=== PATIENT | male | born 1970 | race Caucasian/White ===

== ENCOUNTER 2017-03-06 20:55 | Emergency (ER) | payer SELFPAY ==
[~2017-03-06] VITALS: Ht 177.8 cm; Wt 83.9 kg
[2017-03-06] MEDS ORDERED: cefTRIAXone 1GM/50ML D5W 50 ML IV ONE (21:45)
[2017-03-06] MEDS ORDERED: ONDANSETRON HCL 4 MG/2 ML VIAL IV ONE (21:45)
[2017-03-06] MEDS ORDERED: HYDROmorphone HCL 2 MG/ML VL IV ONE (21:45)
[2017-03-06 22:37] LABS: Basophils # (auto) 0 uL; Basophils % (auto) 0.2 % (0.0-2.0); Eosinophils # (auto) 0.2 uL; Eosinophils % (auto) 1.9 % (0.0-7.0); Hematocrit 38.9 % (41.0-53.0); Hemoglobin 13.1 g/dL (13.5-17.5); Lymphocytes # (auto) 1.8 uL; Lymphocytes % (auto) 14.4 % (10.0-50.0); Mean Corpuscular Hemoglobin 30.8 pg (28.0-32.0); Mean Corpuscular Hgb Conc. 33.7 g/dL (32.0-36.0); Mean Corpuscular Volume 91.5 fL (80.0-100.0); Mean Platelet Volume 7.5 fL (6.9-10.8); Monocytes # (auto) 0.9 uL; Monocytes % (auto) 7.5 % (0.0-12.0); Neutrophils # (auto) 9.5 uL; Platelet Count (auto) 388 10^3/uL (140-450); Red Cell Distribution Width 14.7 % (11.8-14.3); White Blood Cell 12.5 10^3/uL (4.4-10.8)
[2017-03-06 22:43] LABS: Bilirubin, Total 0.2 mg/dL (0.2-1.0); Calcium 7.8 mg/dL (8.5-10.1); Potassium 3.8 mmol/L (3.5-5.1); Total Protein 8.6 g/dL (6.4-8.2)
[2017-03-06] MEDS ORDERED: TETANUS-DIPTH-ACEL PERTUSSIS 0.5ML SYRG IM ONE (23:00)
[2017-03-06] MEDS ORDERED: SODIUM CHLORIDE 0.9% 500 ML IV ONE (23:15)
[2017-03-07] MEDS ORDERED: HYDROmorphone HCL 2 MG/ML VL IV ONE (00:45)
[2017-03-07] MEDS ORDERED: NEOMYCIN-BACITRACIN-POLYM UNITDOSE PKG TOP OINT TOP ONE (00:45)
[2017-03-07 01:22] VITALS: BP 159/107
== END 2017-03-07 01:43 | disposition home or self-care (01) ==
LOC: ER 20:59
DX: S83.92XA Sprain of unspecified site of left knee, initial encounter (principal); S63.642A Sprain of metacarpophalangeal joint of left thumb, initial encounter; S60.512A Abrasion of left hand, initial encounter; I10 Essential (primary) hypertension; V28.0XXA Motorcycle driver injured in noncollision transport accident in nontraffic accident, initial encounter; Y93.89 Activity, other specified; Y99.8 Other external cause status; Y92.89 Other specified places as the place of occurrence of the external cause
CPT/HCPCS: 36415; 70450; 72125; 73120; 73560; 80053; 82962; 85025; 90471; 90715; 96361; 96365; 96375; 96376; 99285; J0696; J1170; J2405; J7040

== ENCOUNTER 2017-03-09 23:04 | Emergency (ER) | payer SELFPAY ==
[2017-03-10 00:01] LABS: Basophils # (auto) 0.1 uL; Basophils % (auto) 0.6 % (0.0-2.0); Eosinophils # (auto) 0.3 uL; Eosinophils % (auto) 1.4 % (0.0-7.0); Hematocrit 40.8 % (41.0-53.0); Hemoglobin 13.9 g/dL (13.5-17.5); Lymphocytes # (auto) 1.2 uL; Lymphocytes % (auto) 5.6 % (10.0-50.0); Mean Corpuscular Hemoglobin 31.3 pg (28.0-32.0); Mean Corpuscular Hgb Conc. 34.1 g/dL (32.0-36.0); Mean Platelet Volume 7.3 fL (6.9-10.8); Monocytes # (auto) 1.3 uL; Monocytes % (auto) 6.3 % (0.0-12.0); Neutrophils # (auto) 17.6 uL; Neutrophils % (auto) 86.1 % (37.0-80.0); Platelet Count (auto) 392 10^3/uL (140-450); Red Cell Distribution Width 14.3 % (11.8-14.3); White Blood Cell 20.5 10^3/uL (4.4-10.8)
[2017-03-10 00:30] LABS: Albumin 3.1 g/dL (3.4-5.0); BUN/Creatinine Ratio 15.4; Calcium 9.2 mg/dL (8.5-10.1); Potassium 4.1 mmol/L (3.5-5.1)
[2017-03-10 00:33] LABS: Bilirubin, Total 0.3 mg/dL (0.2-1.0); Total Protein 7.5 g/dL (6.4-8.2)
== END 2017-03-10 02:00 | disposition left against medical advice (07) ==
LOC: ER 23:10
DX: M79.604 Pain in right leg (principal); Z53.21 Procedure and treatment not carried out due to patient leaving prior to being seen by health care provider
CPT/HCPCS: 36415; 80053; 85025; 85379

== ENCOUNTER 2024-07-28 11:19 | Inpatient (IN) | payer MEDICAID ==
[~2024-07-28] VITALS: Ht 167.6 cm; Wt 89.0 kg
--- NOTE | 2024-07-28 12:13 | ED.PDOC ---
History of Present Illness HPI Comments 54-year-old male with PMHx HTN, CKD, GA, BPH presents with a chief complaint of headache and left-sided weakness. Patient states that he went to bed 0500 this morning and was his last known well time. Patient states that he woke up at 0900 and had a pressure-like headache that he rates a 10/10. Patient is now presenting with slurred speech and reports that is not how he normally talks. Patient also has facial drooping and weakness on his left-side. Patient is hypertensive in triage at 161/105. Patient mentions that he took 2 viagra pills last night and also did methamphetamine. Chief Complaint: Headache Time Seen by MD: 11:58 Reviewed Notes: Medications, Allergies Allergies: Coded Allergies: NO KNOWN ALLERGIES (Unverified , 07/25/24) Information Source: Patient Mode of Arrival: Ambulatory Severity: Moderate Timing: Hours Duration: Since onset Prehospital treatment: None Past Medical History PAST MEDICAL HISTORY: CKF, HTN, GA Past Medical History (Other): BPH Surgical History: Denies all surgeries Family History Family History: Reviewed,noncontributory to illness Social History Smoker: Non-Smoker Alcohol: Denies ETOH Use Drugs: Methamphetamine Lives In: Home Constitutional: denies: chills, diaphoresis, fatigue, fever, malaise, sweats, w eakness, others EENTM: denies: blurred vision, double vision, ear bleeding, ear discharge, ear drainage, ear pain, ear ringing, eye pain, eye redness, hearing loss, mouth pain, mouth swelling, nasal discharge, nose bleeding, nose congestion, nose pain, photophobia, tearing, throat pain, throat swelling, voice changes, others Respiratory: denies: cough, hemoptysis, orthopnea, SOB at rest, shortness of breath, SOB with excertion, stridor, wheezing, others Cardiovascular: denies: chest pain, dizzy spells, diaphoresis, Dyspnea on exertion, edema, irregular heart beat, left arm pain, lightheadedness, palpitations, PND, syncope, others Gastrointestinal: denies: abdomen distended, abdominal pain, blood streaked bowels, constipated, diarrhea, dysphagia, difficulty swallowing, hematemesis, melena, nausea, poor appetite, poor fluid intake, rectal bleeding, rectal pain, vomiting, others Genitourinary: denies: burning, dysuria, flank pain, frequency, hematuria, incontinence, penile discharge, penile sore, pain, testicle pain, testicle swe lling, urgency, others Neurological: reports: headache, left sided weakness; denies: dizziness, fainting, left sided numbness, numbness, paresthesia, pre-existing deficit, right sided numbness, right sided weakness, seizure, speech problems, tingling, tremors, weakness, others Musculoskeletal: denies: back pain, gout, joint pain, joint swelling, muscle pain, muscle stiffness, neck pain, others Integumetry: denies: bruises, change in color, change in hair/nails, dryness, laceration, lesions, lumps, rash, wounds, others Allergic/Immunocompromised: denies: Difficulty Healing, Frequent Infections, Hives, Itching, others Hematologic/Lymphatic: denies: anemia, blood clots, easy bleeding, easy bruising, swollen glands, others Endocrine: denies: excessive hunger, excessive sweating, excessive thirst, excessive urination, flushing, intolerance to cold, intolerance to heat, unexplained weight gain, unexplained weight loss, others Psychiatric: denies: anxiety, bipolar disorder, depression, hopeless, panic disorder, schizophrenia, sleepless, suicidal, others All Other Systems: Reviewed and Negative Physical Exam General Appearance: No Apparent Distress, Normal HEENT: Normal ENT Inspection, Pharynx Normal, TMs Normal Neck: Full Range of Motion, Non-Tender, Normal, Normal Inspection Respiratory: Chest Non-Tender, Lungs Clear, No Accessory Muscle Use, No Respiratory Distress, Normal Breath Sounds Cardiovascular: No Edema, No JVD, No Murmur, No Gallop, Normal Peripheral Pulses, Regular Rate/Rhythm, Other (HYPERTENSIVE) Breast Exam: Deferred Gastrointestinal: No Organomegaly, Non Tender, No Pulsatile Mass, Normal Bowel Sounds, Soft Genitalia: Deferred Pelvic: Deferred Rectal: Deferred Extremities: No calf tenderness, Normal capillary refill, Normal inspection, Normal range of motion, Non-tender, No pedal edema Musculoskeletal : Apperance: Normal Neurologic: Alert, Facial Droop (LEFT SIDED), Normal Affect, Speech Problem (SLURRED SPEECH), Other (LEFT-SIDED FACIAL WEAKNESS) Cerebellar Function: Normal Reflexes: Normal Skin: Dry, Normal Color, Warm Lymphatic: No Adenopathy Was a procedure done? Was a procedure done?: No EKG EKG : Pulse Rate (adult): 79 [place]: Normal Cardiac Rhythm: NSR Block: None Hypertrophy: None ST: Old, Inf, Ant Differential Dx Considerations may include: CVA, ACS, polysubstance abuse, viral syndrome, hypertensive emergency, atypical migraine X-Ray, Labs, Meds, VS Vital Signs Date Time Temp Pulse Resp B/P (MAP) Pulse Ox O2 Delivery O2 Flow Rate FiO2 07/28/24 12:36 93 20 100 Room Air* 0 21 07/28/24 12:36 97.5 93 20 145/100 (115) 100 97.5 07/28/24 12:13 79 07/28/24 12:06 98.3 91 17 147/106 (120) 99 07/28/24 12:03 79 Lab Test 07/28/24 12:54 07/28/24 12:11 07/28/24 11:57 Range/Units White Blood Count 6.8 4.4-10.8 10^3/uL Red Blood Count 4.22 L 4.5-5.90 10^6/uL Hemoglobin 12.8 L 13.5-17.5 g/dL Hematocrit 38.0 L 41.0-53.0 % Mean Corpuscular Volume 90.2 80.0-100.0 fL Mean Corpuscular Hemoglobin 30.5 28.0-32.0 pg Mean Corpuscular Hemoglobin Concent 33.8 32.0-36.0 g/dL Red Cell Distribution Width 14.0 11.8-14.3 % Platelet Count 330 140-450 10^3/uL Mean Platelet Volume 7.7 6.9-10.8 fL Neutrophils (%) (Auto) 58.7 37.0-80.0 % Lymphocytes (%) (Auto) 21.7 10.0-50.0 % Monocytes (%) (Auto) 12.6 H 0.0-12.0 % Eosinophils (%) (Auto) 6.2 0.0-7.0 % Basophils (%) (Auto) 0.8 0.0-2.0 % Neutrophils # (Auto) 4.0 1.6-8.6 10 ^3/uL Lymphocytes # (Auto) 1.5 0.4-5.4 10 ^3/uL Monocytes # (Auto) 0.9 0-1.3 10 ^3/uL Eosinophils # (Auto) 0.4 0-0.8 10 ^3/uL Basophils # (Auto) 0.1 0-0.2 10 ^3/uL Nucleated Red Blood Cells 0.1 % Sodium Level 140 136-145 mmol/L Potassium Level 4.3 3.5-5.1 mmol/L Chloride Level 108 H 98-107 mmol/L Carbon Dioxide Level 24 20-31 mmol/L Anion Gap 8 5-15 Blood Urea Nitrogen 20 9-23 mg/dL Creatinine 1.39 H 0.700-1.30 mg/dL Glomerular Filtration Rate Calc 61 >90 mL/min BUN/Creatinine Ratio 14.4 10.0-20.0 Serum Glucose 102 74-106 mg/dL Lactic Acid Level 0.8 0.4-2.0 mmol/L Calcium Level 9.9 8.7-10.4 mg/dL Troponin I High Sensitivity 67 *H </=54 ng/L B-Type Natriuretic Peptide 62.81 0-100 pg/mL Lipase 58 H 12-53 U/L Urine Color Yellow Yellow Urine Clarity Clear Clear Urine pH 5.5 5.0-9.0 Urine Specific [place] 1.027 1.001-1.035 Urine Protein Trace H Negative Urine Ketones Negative Negative Urine Blood Negative Negative /uL Urine Nitrite Negative Negative Urine Bilirubin Negative Negative Urine Urobilinogen Normal Negative mg/dL Urine Leukocyte Esterase Negative Negative /uL Urine RBC <1 0 - 3 /hpf Urine Microscopic WBC 1 0-3 /HPF Urine Squamous Epithelial Cells None seen <5 /hpf Urine Bacteria None seen None Seen /hpf Urine Glucose Normal Normal mg/dL Urine Opiates Screen Neg NEGATIVE Urine Fentanyl Screen Neg NEGATIVE Urine Barbiturates Screen Neg NEGATIVE Urine Phencyclidine Screen Neg NEGATIVE Urine Amphetamines Screen Pos NEGATIVE Urine Benzodiazepines Screen Neg NEGATIVE Urine Cocaine Screen Neg NEGATIVE Urine Cannabinoids Screen Pos NEGATIVE POC Glucose 120 H 70-106 mg/dl Time of 1ST Reevaluation: 12:28 Reevaluation 1ST: Unchanged Patient Education/Counseling: Diagnosis, Treatment, Prognosis Family Education/Counseling: No Family Present Departure 1 Departure Time of Disposition: 14:04 (Patient presenting with left-sided facial droop and is out of the range for thrombolytics. Patient does not have signs and symptoms for a large vessel occlusion.Patient presented with hypertension and symptoms concerning for hypertensive emergency. Patient is receiving iv blood pressure medications requiring intensive monitoring. Data: 1. I ordered and reviewed the result of at least 3 labs including a CBC, BMP, and Urinalysis. 2. I independently interpreted the following tests: CT Brain: Which appears benign. EKG which is Normal Sinus RhythmRisk:This patient has a high risk of morbidity due to further diagnostic testing or treatment and may suffer from an acute cardiac disorder. Workup reveals hypertensive emergency and patient should be admitted for further workup. and possible expert consultation. ) Impression: Primary Impression: Hypertensive emergency Additional Impressions: Weakness on left side of face Elevated troponin Polysubstance abuse Disposition: ADMITTED INPATIENT Admit to: Med Surg Condition: Serious Critical Care Note Critical Care Time?: Yes Critical care comment: Hypertensive emergency and left-sided facial weakness Authorized and Performed by: Inna Charles MD Total critical care time: Approximately 46 minutes Due to a high probability of clinically significant, life threatening deterioration, the patient required my highest level of preparedness to intervene emergently and I personally spent this critical care time directly and personally managing the patient. This critical care time included obtaining a history; examining the patient; pulse oximetry; ordering and review of studies; arranging urgent treatment with development of a management plan; evaluation of patient's response to treatment; frequent reassessment; and, discussions with other providers. This critical care time was performed to assess and manage the high probability of imminent, life-threatening deterioration that could result in multi-organ failure. It was exclusive of separately billable procedures and treating other patients and teaching time. Please see my other sections and the rest of the note for further information on patient assessment and treatment. Stability Stability form required: No I personally scribed for INNA CHARLES MD ([email or web address]) on 07/28/24 at 12:13. Electronically submitted by Krishna Vidal ([email or web address]). INNA CHARLES MD Jul 28, 2024 12:13
--- NOTE | 2024-07-28 12:31 | DVH ---
EXAM: XY CHEST PORTABLE HISTORY: left sided facial weakness COMPARISON: None TECHNIQUE: Portable AP view of the chest was performed. FINDINGS: No pneumothorax, consolidative infiltrates, or pulmonary edema. The heart is not enlarged. There is mild lower thoracic levoscoliosis. IMPRESSION: No acute intrathoracic process.
[2024-07-28 12:36] VITALS: PULSE 93; RESP 20; O2SAT 100
--- NOTE | 2024-07-28 12:36 | DVH ---
EXAM: CT HEAD WITHOUT CONTRAST HISTORY: left sided facial weakness COMPARISON: None TECHNIQUE: Axial images of the head were obtained and reformatted in coronal and sagittal planes. All CT scans at this medical facility are performed using dose modulation techniques as appropriate t o a performed exam including the following: Automated exposure control was utilized; adjustment of th e MA and/or KV according to patient size; and use of iterative reconstruction technique. CT Dose: CTDI volume is 54.5 mGy. Dose-length product is 964.75 mGy*cm FINDINGS: There is no evidence of acute intracranial hemorrhage, mass, mass effect midline shift. There is no h ydrocephalus or extra-axial fluid collection. Cagle-white matter differentiation is maintained. The visualized paranasal sinuses and mastoid air cells are clear. The calvarium is intact. IMPRESSION: 1. No acute intracranial process. HS:Y
[2024-07-28 12:47] LABS: Urine Bacteria None Seen /hpf (None Seen)
[2024-07-28 13:08] LABS: Urine Blood Negative /uL (Negative); Urine Clarity Clear (Clear); Urine Color Yellow (Yellow); Urine Protein, UAD TRACE (Negative); Urine Specific Gravity 1.027 (1.001-1.035); Urine Squamous Epithelial Cell None Seen /hpf (<5); Urine Urobilinogen Normal (Negative); Urine WBC 1 /HPF (0-3); Urine pH 5.5 (5.0-9.0)
[2024-07-28 13:13] LABS: Amphetamine Screen, Urine Pos (NEGATIVE); Barbiturate Scree,Urine Neg (NEGATIVE); Benzodiazephine Screen, Urine Neg (NEGATIVE); Cannabinoid Screen, Urine Pos (NEGATIVE); Cocaine Screen, Urine Neg (NEGATIVE); Opiate Scree,Urine Neg (NEGATIVE); Phencyclidine Screen, Urine Neg (NEGATIVE)
[2024-07-28 13:19] LABS: Basophils # (auto) 0.1 10 ^3/uL (0-0.2); Basophils % (auto) 0.8 % (0.0-2.0); Eosinophils # (auto) 0.4 10 ^3/uL (0-0.8); Eosinophils % (auto) 6.2 % (0.0-7.0); Hemoglobin 12.8 g/dL (13.5-17.5); Lymphocytes # (auto) 1.5 10 ^3/uL (0.4-5.4); Lymphocytes % (auto) 21.7 % (10.0-50.0); Mean Corpuscular Hemoglobin 30.5 pg (28.0-32.0); Mean Corpuscular Hgb Conc. 33.8 g/dL (32.0-36.0); Mean Corpuscular Volume 90.2 fL (80.0-100.0); Monocytes # (auto) 0.9 10 ^3/uL (0-1.3); Monocytes % (auto) 12.6 % (0.0-12.0); Neutrophils % (auto) 58.7 % (37.0-80.0); Nucleated Red Blood Cells % 0.1 %; Platelet Count (auto) 330 10^3/uL (140-450); Red Blood Cells 4.22 10^6/uL (4.5-5.90); White Blood Cell 6.8 10^3/uL (4.4-10.8)
[2024-07-28 13:26] LABS: Potassium 4.3 mmol/L (3.5-5.1); Sodium 140 mmol/L (136-145)
[2024-07-28 13:27] LABS: Anion Gap 8 (5-15); Calcium 9.9 mg/dL (8.7-10.4); Carbon Dioxide 24 mmol/L (20-31)
[2024-07-28 13:32] LABS: BUN/Creatinine Ratio 14.4 (10.0-20.0); Blood Urea Nitrogen 20 mg/dL (9-23); Glucose 102 mg/dL (74-106)
[2024-07-28 13:33] LABS: Chloride 108 mmol/L (98-107); Lipase 58 U/L (12-53)
[2024-07-28] MEDS: hydrALAZINE HCL 20 MG/ML VL IV ONE (15:14)
[2024-07-28] MEDS ORDERED: ACETAMINOPHEN 325 MG TAB PO PRN (15:45)
[2024-07-28] MEDS ORDERED: hydrALAZINE HCL 20 MG/ML VL IV PRN (15:45)
[2024-07-28] MEDS ORDERED: DOCUSATE SOD 100 MG CAP PO PRN (15:45)
[2024-07-28] MEDS ORDERED: ONDANSETRON HCL 4 MG/2 ML VIAL IV PRN (15:45)
[2024-07-28] MEDS: TAMSULOSIN HYDROCHLORIDE 0.4 MG CAP PO SCH (16:02)
[2024-07-28] MEDS: amLODIPine BESYLATE 5 MG TAB PO ONE (16:03)
--- NOTE | 2024-07-28 16:03 | DVHHP2 ---
History of Present Illness Reason for Visit: Headache History of Present Illness The patient is a 54-year-old male with past medical history of CKF, hypertension, NE, and BPH presented to [facility] ED with complaint of headache. Patient reports symptoms progressively get worse with left-sided weakness, pressure of his right eyes, getting worse that prompted this visit. Patient was seen and evaluated in the ED, laboratory data shows WBC 6.8, platelets 330, sodium 140, potassium 4.3, BUN 20, creatinine 1.39, GFR 61, glucose 102, BNP 62.81, troponin 67, lipase 58, toxicology positive for amphetamine and marijuana, blood pressure 148/94, heart rate 95, temperature 97.5 F, O2 saturation 98% on room air. Head CT showed no acute intracranial process. Please see medication orders section in the computer. On my assessment, patient denied chest pain, no dizziness, no diaphoresis, no shortness a breath, no nausea, no vomiting, no fever, no chills. Patient was admitted for further evaluation and medical management. Past Medical History CKF, HTN, NE, BPH Past Surgical History Denies all surgeries Family History Reviewed, noncontributory to the management of this case. Past Social History Patient lives at home, denies smoking, alcohol use, uses methamphetamine and marijuana. Review of Systems Constitutional: Yes: Weakness; No: Fever, Chills, Sweats, Malaise, Other Eyes: No: Pain, Vision change, Conjunctivae inflammation, Eyelid inflammation, Other, Redness ENT: No: Ear pain, Ear discharge, Nose pain, Nose discharge, Nose congestion, Mouth pain, Mouth swelling, Throat pain, Throat swelling, Other Respiratory: No: Cough, Dry, Shortness of breath, SOB with excertion, Wheezing, Hemoptysis, Pleuritic Pain, Sputum, Wheezing, Other Cardiovascular: No: Chest Pain, Palpitations, Orthopnea, Paroxysmal Noc. Dyspnea, Edema, Lt Headedness, Other Gastrointestinal: No: Nausea, Vomiting, Abdominal Pain, Diarrhea, Constipation, Melena, Hematochezia, Other Genitourinary: No Dysuria, No Frequency, No Incontinence, No Hematuria, No Retention, No Other Musculoskeletal: No: other, neck pain, shoulder pain, arm pain, back pain, hand pain, leg pain, foot pain Skin: No: Rash, Lesions, Jaundice, Bruising, Other Neurological: Other (Headache, left-sided weakness.); No: Weakness, Numbness, Incoordination, Change in speech, Confusion, Seizures Allergies: Coded Allergies: NO KNOWN ALLERGIES (Unverified , 07/25/24) Medications Current Medications Medications Dose Ordered Sig/Christian Route Start Time Stop Time Status Last Admin Dose Admin Amlodipine Besylate 5 mg DAILY PO 07/29/24 10:00 Hydralazine HCl 10 mg Q6HP PRN IV 07/28/24 15:45 Aspirin 81 mg DAILY PO 07/29/24 10:00 Tamsulosin HCl 0.4 mg QPM PO 07/28/24 18:00 Famotidine 20 mg DAILY IV 07/29/24 10:00 UNV Carvedilol 12.5 mg Q12HR PO 07/28/24 22:00 Sodium Chloride 10 ml Q8HR IV 07/28/24 22:00 Acetaminophen/ Hydrocodone Bitart 1 tab Q4HP PRN PO 07/28/24 15:45 Ondansetron HCl 4 mg Q4HP PRN IV 07/28/24 15:45 Docusate Sodium 100 mg BIDPRN PRN PO 07/28/24 15:45 Acetaminophen 650 mg Q6HP PRN PO 07/28/24 15:45 Exam Vital Signs Vital Signs Date Time Temp Pulse Resp B/P (MAP) Pulse Ox O2 Delivery O2 Flow Rate FiO2 07/28/24 15:14 148/94 07/28/24 14:30 95 18 97 07/28/24 12:36 Room Air* 0 21 07/28/24 12:36 97.5 97.5 General Appearance: Alert, Oriented X3, Cooperative, No acute distress HEENT: Atraumatic, PERRLA, EOMI, Mucous membr. moist/pink Respiratory: Clear to auscultation, Normal air movement Cardiovascular: Regular rate, Normal S1, Normal S2, No murmurs Abdominal: Normal bowel sounds, Soft, No tenderness, No hepatospenomegaly Extremities: No clubbing, No cyanosis, No edema, Normal pulses, No tenderness/swelling Skin: No rashes, No breakdown, No significant lesion Neuro: Normal speech, Normal tone, Sensation intact, Cranial nerves 3-12 NL, Reflexes 2+, Other (Generalized weakness) Psych/Mental Status: Mental status NL, Mood NL Labs/Xrays Labs Test 07/28/24 12:54 3/10/25 12:11 07/28/24 11:57 Range/Units White Blood Count 6.8 4.4-10.8 10^3/uL Red Blood Count 4.22 L 4.5-5.90 10^6/uL Hemoglobin 12.8 L 13.5-17.5 g/dL Hematocrit 38.0 L 41.0-53.0 % Mean Corpuscular Volume 90.2 80.0-100.0 fL Mean Corpuscular Hemoglobin 30.5 28.0-32.0 pg Mean Corpuscular Hemoglobin Concent 33.8 32.0-36.0 g/dL Red Cell Distribution Width 14.0 11.8-14.3 % Platelet Count 330 140-450 10^3/uL Mean Platelet Volume 7.7 6.9-10.8 fL Neutrophils (%) (Auto) 58.7 37.0-80.0 % Lymphocytes (%) (Auto) 21.7 10.0-50.0 % Monocytes (%) (Auto) 12.6 H 0.0-12.0 % Eosinophils (%) (Auto) 6.2 0.0-7.0 % Basophils (%) (Auto) 0.8 0.0-2.0 % Neutrophils # (Auto) 4.0 1.6-8.6 10 ^3/uL Lymphocytes # (Auto) 1.5 0.4-5.4 10 ^3/uL Monocytes # (Auto) 0.9 0-1.3 10 ^3/uL Eosinophils # (Auto) 0.4 0-0.8 10 ^3/uL Basophils # (Auto) 0.1 0-0.2 10 ^3/uL Nucleated Red Blood Cells 0.1 % Sodium Level 140 136-145 mmol/L Potassium Level 4.3 3.5-5.1 mmol/L Chloride Level 108 H 98-107 mmol/L Carbon Dioxide Level 24 20-31 mmol/L Anion Gap 8 5-15 Blood Urea Nitrogen 20 9-23 mg/dL Creatinine 1.39 H 0.700-1.30 mg/dL Glomerular Filtration Rate Calc 61 >90 mL/min BUN/Creatinine Ratio 14.4 10.0-20.0 Serum Glucose 102 74-106 mg/dL Lactic Acid Level 0.8 0.4-2.0 mmol/L Calcium Level 9.9 8.7-10.4 mg/dL Troponin I High Sensitivity 67 *H </=54 ng/L B-Type Natriuretic Peptide 62.81 0-100 pg/mL Lipase 58 H 12-53 U/L Urine Color Yellow Yellow Urine Clarity Clear Clear Urine pH 5.5 5.0-9.0 Urine Specific [place] 1.027 1.001-1.035 Urine Protein Trace H Negative Urine Ketones Negative Negative Urine Blood Negative Negative /uL Urine Nitrite Negative Negative Urine Bilirubin Negative Negative Urine Urobilinogen Normal Negative mg/dL Urine Leukocyte Esterase Negative Negative /uL Urine RBC <1 0 - 3 /hpf Urine Microscopic WBC 1 0-3 /HPF Urine Squamous Epithelial Cells None seen <5 /hpf Urine Bacteria None seen None Seen /hpf Urine Glucose Normal Normal mg/dL Urine Opiates Screen Neg NEGATIVE Urine Fentanyl Screen Neg NEGATIVE Urine Barbiturates Screen Neg NEGATIVE Urine Phencyclidine Screen Neg NEGATIVE Urine Amphetamines Screen Pos NEGATIVE Urine Benzodiazepines Screen Neg NEGATIVE Urine Cocaine Screen Neg NEGATIVE Urine Cannabinoids Screen Pos NEGATIVE POC Glucose 120 H 70-106 mg/dl PATIENT: EV RICHARDSON ACCT: [id number] UNIT: [id number] : 1970 LOC: ER ROOM / BED: / AGE / SEX: 54 / M ADM STATUS: REG ER SERVICE 1206 ORDERING PHYSICIAN: INNA DE SANTIAGO MD PROCEDURE(s): HWOCT - HEAD WITHOUT CONTRAST REASON: left sided facial weakness ORDER NUMBER(s): [id number], ACCESSION NUMBER(s): [id number] EXAM: CT HEAD WITHOUT CONTRAST HISTORY: left sided facial weakness COMPARISON: None TECHNIQUE: Axial images of the head were obtained and reformatted in coronal and sagittal planes. All CT scans at this medical facility are performed using dose modulation techniques as appropriate to a performed exam including the following: Automated exposure control was utilized; adjustment of the MA and/or KV according to patient size; and use of iterative reconstruction technique. CT Dose: CTDI volume is 54.5 mGy. Dose-length product is 964.75 mGy*cm FINDINGS: There is no evidence of acute intracranial hemorrhage, mass, mass effect midline shift. There is no hydrocephalus or extra-axial fluid collection. Cagle-white matter differentiation is maintained. The visualized paranasal sinuses and mastoid air cells are clear. The calvarium is intact. IMPRESSION: 1. No acute intracranial process. ORDERING PHYSICIAN: INNA DE SANTIAGO MD PROCEDURE(s): CXRP - CHEST PORTABLE REASON: left sided facial weakness ORDER NUMBER(s): [id number], ACCESSION NUMBER(s): [id number] EXAM: XY CHEST PORTABLE HISTORY: left sided facial weakness COMPARISON: None TECHNIQUE: Portable AP view of the chest was performed. FINDINGS: No pneumothorax, consolidative infiltrates, or pulmonary edema. The heart is not enlarged. There is mild lower thoracic levoscoliosis. IMPRESSION: No acute intrathoracic process. Assessment/Plan Assessment/Plan Intractable headache Hypertensive emergency Polysubstance abuse Elevated troponin Weakness on left side of face Plan 1. Admit to telemetry unit 2. Breathing treatment 3. Pain control management 4. Management of fluids and electrolytes 5. Consultation for Neurology 6. Diagnostic tests head CT 7. DVT prophylaxis-on SCDs 8. Repeat labs CBC, CMP in a.m. 9. Continue with current medical management 10. Treatment plan discussed with patient and RN. Patient verbalized understanding. Plan discussed with: Patient, Other (RN) My Orders Orders - HUMPHREY WOO DNP Procedure Category Date Status Time Amlodipine Tablet PHA 07/29/24 In Process (Norvasc Tablet) 10:00 Hydralazine Injection PHA 07/28/24 In Process (Apresoline Inject 15:45 Aspirin Tablet PHA 07/29/24 In Process 10:00 Tamsulosin PHA 07/28/24 In Process Hydrochloride (Flomax) 18:00 Famotidine Injection PHA 07/29/24 Logged (Pepcid Injection) 10:00 Carvedilol Tablet PHA 07/28/24 In Process (Coreg Tablet) 22:00 Allergies NANO 07/28/24 In Process 15:43 Code Status CODE 07/28/24 Transmitted 15:43 Sodium Chloride Lock PHA 07/28/24 In Process (Saline Lock Ns) 22:00 Oxygen Per Hour RT 07/28/24 Transmitted 15:43 Hydrocodone-Acet PHA 07/28/24 In Process 5/325mg Tab ([place] 15:45 Ondansetron Hcl PHA 07/28/24 In Process (Zofran) 15:45 Docusate Sodium PHA 07/28/24 In Process Capsule (Colace 15:45 Complete Blood Count LAB 07/29/24 Verified 04:00 Comprehensive LAB 07/29/24 Verified Metabolic Panel 04:00 Cardiac DIET 07/28/24 Transmitted Diet-2gna,Lofat,Lochol Dinner Condition: Serious NANO 07/28/24 In Process 15:43 Acetaminophen Tablet PHA 07/28/24 In Process (Tylenol Tablet) 15:45 Bedrest With Bathroom NANO 07/28/24 In Process Privileg 15:43 Sequential NANO 07/28/24 In Process Compression Device Admit ADMIT 07/28/24 Verified 16:02 Nitroglycerin [facility] 07/28/24 Verified Sublingual (Ntrostat 16:15 Morphine Sulfate [facility] 07/28/24 Verified Injection 16:15 Notify Md Of Changes [facility] 07/28/24 Verified From Base 16:02 [employer] For [facility] 07/28/24 Verified 24 Hours 16:02 Emergency Dysrhythmia [facility] 07/28/24 Verified Protocol 16:02 Rhythm Strips Once [facility] 07/28/24 Verified Every Shift 16:02 Oxygen By Nasal RT 07/28/24 Verified Cannula 16:02 Problem List: (1) Intractable headache (2) Hypertensive emergency (3) Polysubstance abuse (4) Elevated troponin (5) Weakness on left side of face Date of Service: Jul 28, 2024 Billing Provider: HUMPHREY WOO DNP Common Visit Codes: [id number] INP/OBS CARE (HIGH) HUMPHREY WOO DNP Jul 28, 2024 16:03
[2024-07-28] MEDS ORDERED: MORPHINE SULFATE INJ 2 MG/ml SYRG IV PRN (16:15)
[2024-07-28] MEDS ORDERED: NITROGLYCERIN 0.4 MG SL TAB SL PRN (16:15)
[2024-07-28] MEDS: SODIUM CHLOR 0.9% PF (SALINE LOCK) 10ML VIAL/SYR IV SCH (22:05)
[2024-07-28 22:16] VITALS: BP 152/95; PULSE 101; RESP 18; RESP 20; TEMP 98.1; O2SAT 95; O2SAT 99
[2024-07-28] MEDS: CARVEDILOL 12.5 MG TAB PO SCH (22:39)
[2024-07-29] VITALS (9 sets, daily range): BP systolic 124–145; BP diastolic 73–89; PULSE 70–97; RESP 16–19; TEMP 97.3–98.1; O2SAT 98–100
[2024-07-29 07:15] LABS: Basophils # (auto) 0 10 ^3/uL (0-0.2); Basophils % (auto) 0.8 % (0.0-2.0); Eosinophils # (auto) 0.6 10 ^3/uL (0-0.8); Eosinophils % (auto) 9.2 % (0.0-7.0); Hematocrit 38.7 % (41.0-53.0); Hemoglobin 12.9 g/dL (13.5-17.5); Lymphocytes # (auto) 1.3 10 ^3/uL (0.4-5.4); Lymphocytes % (auto) 19.7 % (10.0-50.0); Mean Corpuscular Hemoglobin 30.5 pg (28.0-32.0); Mean Corpuscular Hgb Conc. 33.3 g/dL (32.0-36.0); Mean Corpuscular Volume 91.8 fL (80.0-100.0); Monocytes # (auto) 0.8 10 ^3/uL (0-1.3); Monocytes % (auto) 11.8 % (0.0-12.0); Neutrophils # (auto) 3.8 10 ^3/uL (1.6-8.6); Neutrophils % (auto) 58.5 % (37.0-80.0); Nucleated Red Blood Cells % 0.1 %; Platelet Count (auto) 320 10^3/uL (140-450); Red Blood Cells 4.22 10^6/uL (4.5-5.90); Red Cell Distribution Width 14.3 % (11.8-14.3); White Blood Cell 6.5 10^3/uL (4.4-10.8)
[2024-07-29 07:29] LABS: Alanine Aminotransferase 16 U/L (7-40); Albumin 3.8 g/dL (3.2-4.8); Alkaline Phosphatase 103 U/L (46-116); Anion Gap 7 (5-15); BUN/Creatinine Ratio 12.6 (10.0-20.0); Blood Urea Nitrogen 18 mg/dL (9-23); Calcium 9.4 mg/dL (8.7-10.4); Carbon Dioxide 22 mmol/L (20-31); Glucose 103 mg/dL (74-106); Potassium 4.1 mmol/L (3.5-5.1); Sodium 138 mmol/L (136-145); Total Protein 6.4 g/dL (5.7-8.2)
[2024-07-29 07:30] LABS: Bilirubin, Total 0.3 mg/dL (0.2-1.0)
[2024-07-29 07:31] LABS: Aspartate Aminotransferase 13 U/L (13-40); Chloride 109 mmol/L (98-107)
[2024-07-29] MEDS: FAMOTIDINE (10MG/ML) 2ML VL IV SCH (09:57)
[2024-07-29] MEDS: ASPirin 81 mg TAB PO SCH (09:59)
[2024-07-29] MEDS: amLODIPine BESYLATE 5 MG TAB PO SCH (10:00)
[2024-07-29 10:28] LABS: INR 1.11 (0.9-1.15); Prothrombin Time 11.6 sec (9.3-11.8)
[2024-07-29] MEDS: LOSARTAN POTASSIUM 50 MG TAB PO ONE (17:25)
[2024-07-29] MEDS: HYDROcodone-ACET 5/325MG TAB PO PRN (17:29)
--- NOTE | 2024-07-29 18:08 | DVHDSRES ---
Discharge Summary Date of Admission Resident Creating Document: KISHA ALCOCER RESIDENT Jul 28, 2024 at 16:02 Date of Discharge: Jul 29, 2024 Admitting Diagnosis headache Labs/Diagnostic Data: Laboratory Results Test 07/29/24 15:44 07/29/24 09:38 07/29/24 06:23 07/28/24 12:54 Troponin I High Sensitivity 61 ng/L (</=54) Prothrombin Time 11.6 sec (9.3-11.8) Prothrombin Time INR 1.11 (0.9-1.15) White Blood Count 6.5 10^3/uL (4.4-10.8) Red Blood Count 4.22 10^6/uL (4.5-5.90) Hemoglobin 12.9 g/dL (13.5-17.5) Hematocrit 38.7 % (41.0-53.0) Mean Corpuscular Volume 91.8 fL (80.0-100.0) Mean Corpuscular Hemoglobin 30.5 pg (28.0-32.0) Mean Corpuscular Hemoglobin Concent 33.3 g/dL (32.0-36.0) Red Cell Distribution Width 14.3 % (11.8-14.3) Platelet Count 320 10^3/uL (140-450) Mean Platelet Volume 7.8 fL (6.9-10.8) Neutrophils (%) (Auto) 58.5 % (37.0-80.0) Lymphocytes (%) (Auto) 19.7 % (10.0-50.0) Monocytes (%) (Auto) 11.8 % (0.0-12.0) Eosinophils (%) (Auto) 9.2 % (0.0-7.0) Basophils (%) (Auto) 0.8 % (0.0-2.0) Neutrophils # (Auto) 3.8 10 ^3/uL (1.6-8.6) Lymphocytes # (Auto) 1.3 10 ^3/uL (0.4-5.4) Monocytes # (Auto) 0.8 10 ^3/uL (0-1.3) Eosinophils # (Auto) 0.6 10 ^3/uL (0-0.8) Basophils # (Auto) 0 10 ^3/uL (0-0.2) Nucleated Red Blood Cells 0.1 % Sodium Level 138 mmol/L (136-145) Potassium Level 4.1 mmol/L (3.5-5.1) Chloride Level 109 mmol/L (98-107) Carbon Dioxide Level 22 mmol/L (20-31) Anion Gap 7 (5-15) Blood Urea Nitrogen 18 mg/dL (9-23) Creatinine 1.43 mg/dL (0.700-1.30) Glomerular Filtration Rate Calc 59 mL/min (>90) BUN/Creatinine Ratio 12.6 (10.0-20.0) Serum Glucose 103 mg/dL (74-106) Hemoglobin A1c 5.9 % A1C (<5.7) Calcium Level 9.4 mg/dL (8.7-10.4) Total Bilirubin 0.3 mg/dL (0.2-1.0) Aspartate Amino Transferase (AST) 13 U/L (13-40) Alanine Aminotransferase (ALT) 16 U/L (7-40) Alkaline Phosphatase 103 U/L (46-116) Total Protein 6.4 g/dL (5.7-8.2) Albumin 3.8 g/dL (3.2-4.8) Thyroid Stimulating Hormone (TSH) 1.41 uIU/mL (0.55-4.78) Lactic Acid Level 0.8 mmol/L (0.4-2.0) B-Type Natriuretic Peptide 62.81 pg/mL (0-100) Lipase 58 U/L (12-53) Test 07/28/24 12:11 07/28/24 11:57 Urine Color Yellow (Yellow) Urine Clarity Clear (Clear) Urine pH 5.5 (5.0-9.0) Urine Specific [place] 1.027 (1.001-1.035) Urine Protein Trace (Negative) Urine Ketones Negative (Negative) Urine Blood Negative /uL (Negative) Urine Nitrite Negative (Negative) Urine Bilirubin Negative (Negative) Urine Urobilinogen Normal mg/dL (Negative) Urine Leukocyte Esterase Negative /uL (Negative) Urine RBC <1 /hpf (0 - 3) Urine Microscopic WBC 1 /HPF (0-3) Urine Squamous Epithelial Cells None seen /hpf (<5) Urine Bacteria None seen /hpf (None Seen) Urine Glucose Normal mg/dL (Normal) Urine Opiates Screen Neg (NEGATIVE) Urine Fentanyl Screen Neg (NEGATIVE) Urine Barbiturates Screen Neg (NEGATIVE) Urine Phencyclidine Screen Neg (NEGATIVE) Urine Amphetamines Screen Pos (NEGATIVE) Urine Benzodiazepines Screen Neg (NEGATIVE) Urine Cocaine Screen Neg (NEGATIVE) Urine Cannabinoids Screen Pos (NEGATIVE) POC Glucose 120 mg/dl (70-106) Other Laboratory Tests 07/29/24 06:23 Brief Hx & Hospital Course: HPI: The patient is a 54-year-old male with past medical history of chronic kidney disease, hypertension, myocardial infarction, benign prostatic hyperplasia who presented to the hospital with a chief complaint of headaches for the past 1 day after he uses 2 pills of Viagra and methamphetamines the last night before admission. Patient reports he he was progressively getting worse with left- sided weakness and pressure on his eyes. Hospital course: In the emergency department the patient underwent a head CT to rule out stroke, results were unremarkable chest x-ray was normal. Urine drug screen showed positive for amphetamines and marijuana he denies using any IV drugs or cocaine. He also denies using alcohol or cigarettes. Troponin levels were slightly elevated which was related with ischemic demand due to the hypertensive urgency, he was advised to follow up with his primary care doctor in the outpatient and resume his home medications. Disposition: Discharge to home Goals of care discussed with the patient for 36 minutes Code status: Full code Operations or Procedures [place] [address] Ph: [phone] DIAGNOSTIC IMAGING Diagnostic Imaging Report : [id number] Signed PATIENT: EV RICHARDSON ACCT: [id number] UNIT: [id number] : 1970 LOC: ER ROOM / BED: / AGE / SEX: 54 / M ADM STATUS: REG ER SERVICE 1206 ORDERING PHYSICIAN: INNA DE SANTIAGO MD PROCEDURE(s): CXRP - CHEST PORTABLE REASON: left sided facial weakness ORDER NUMBER(s): [id number], ACCESSION NUMBER(s): [id number] EXAM: XY CHEST PORTABLE HISTORY: left sided facial weakness COMPARISON: None TECHNIQUE: Portable AP view of the chest was performed. FINDINGS: No pneumothorax, consolidative infiltrates, or pulmonary edema. The heart is not enlarged. There is mild lower thoracic levoscoliosis. IMPRESSION: No acute intrathoracic process. ATED BY: ZEE MENARD MD DICTATED DATE/TIME: 07/28/241228 SIGNED BY: ZEE MENARD MD SIGNED DATE/TIME: 07/28/241228 CC: [address] [address] Ph: [phone] DIAGNOSTIC IMAGING Diagnostic Imaging Report : [id number] Signed PATIENT: EV RICHARDSON ACCT: [id number] UNIT: [id number] : 1970 LOC: ER ROOM / BED: / AGE / SEX: 54 / M ADM STATUS: REG ER SERVICE 1206 ORDERING PHYSICIAN: INNA DE SANTIAGO MD PROCEDURE(s): HWOCT - HEAD WITHOUT CONTRAST REASON: left sided facial weakness ORDER NUMBER(s): [id number], ACCESSION NUMBER(s): [id number] EXAM: CT HEAD WITHOUT CONTRAST HISTORY: left sided facial weakness COMPARISON: None TECHNIQUE: Axial images of the head were obtained and reformatted in coronal and sagittal planes. All CT scans at this medical facility are performed using dose modulation techniques as appropriate to a performed exam including the following: Automated exposure control was utilized; adjustment of the MA and/or KV according to patient size; and use of iterative reconstruction technique. CT Dose: CTDI volume is 54.5 mGy. Dose-length product is 964.75 mGy*cm FINDINGS: There is no evidence of acute intracranial hemorrhage, mass, mass effect midline shift. There is no hydrocephalus or extra-axial fluid collection. Cagle-white matter differentiation is maintained. The visualized paranasal sinuses and mastoid air cells are clear. The calvarium is intact. IMPRESSION: 1. No acute intracranial process. HS:Y ATED BY: DIOGENES CURRAN MD DICTATED DATE/TIME: 07/28/241232 SIGNED BY: DIOGENES CURRAN MD SIGNED DATE/TIME: 07/28/24 123 CC: Condition at Discharge: Fair Final Diagnosis/Problems List Intractable headache Hypertensive urgency Polysubstance abuse NSTEMI 2 prediabetes ruled out stroke Discharge Disposition: Home SNF Discharge Will this Physician continue t: No Discharge Instruct/Medications Diet: Cardiac 2g Na,low cholest Activity: No Restrictions, As Tolerated Follow Up/Referral: follow up with pcp within 1 to 2 weeks Medications: script to pharmacy Discharge Statement: "Patient was advised to return to the ER or call 911 if any headaches, dizziness, shortness of breath, chest pain, abdominal pain, bleeding, fevers, or worsening of medical condition. Patient was counseled about treatment plan, medications, possible side effects, patientverbalized understanding. All questions were answered to the best of my ability. This discharge took greater then 30 minutes in planning, reviewing documentation, counseling the patient, and discussing with other team members." ASSESSMENT ASSESSMENT Assessment Intractable headache Hypertensive emergency Polysubstance abuse NSTEMI 2 ruled out stroke KISHA ALCOCER RESIDENT Jul 29, 2024 18:08
== END 2024-07-29 20:52 | disposition home or self-care (01) | DRG 199 ==
LOC: ER 11:19 → OVERFLOW 16:02 → TELE-WESTW 22:15
PROVIDERS: ADMIT Student in an Organized Health Care Education/Training Program; ATTEND Student in an Organized Health Care Education/Training Program
DX: I16.1 Hypertensive emergency (principal); I21.A1 Myocardial infarction type 2; R29.810 Facial weakness; R79.89 Other specified abnormal findings of blood chemistry; I12.9 Hypertensive chronic kidney disease with stage 1 through stage 4 chronic kidney disease, or unspecified chronic kidney disease; N18.9 Chronic kidney disease, unspecified; N40.0 Benign prostatic hyperplasia without lower urinary tract symptoms; F19.10 Other psychoactive substance abuse, uncomplicated
CPT/HCPCS: 36415; 70450; 71045; 80048; 80053; 80307; 81001; 82962; 83036; 83605; 83690; 83880; 84443; 84484; 85025; 85610; 96374; 99291; G0378; J3490

== ENCOUNTER 2025-02-05 17:26 | Emergency (ER) | payer MEDICAID ==
[~2025-02-05] VITALS: Ht 177.8 cm; Wt 87.2 kg
--- NOTE | 2025-02-05 19:11 | ED.PDOC ---
Musculoskeletal HPI Comments This patient is a 55 year old male presenting to the ED with chief complaint of right leg wound. Patient reports that he had hit his right leg against a metal bar 4 days ago and since then he has developed redness, swelling, and drainage to the wound site with the pain that affects the entire right lower leg. Patient states he is unsure when his last Tetanus vaccine was given. Patient denies any numbness, weakness, fever, or chills. Vital signs were stable. Chief Complaint: Lower Extremity Time Seen by MD: 19:09 Primary Care Provider: enoch Reviewed Notes: Nurses Notes, Medications, Allergies Allergies: Coded Allergies: NO KNOWN ALLERGIES (Unverified , 07/25/24) Home Meds No Active Prescriptions or Reported Meds Information Source: Patient Mode of Arrival: Ambulatory Location: Right Extremity Location: Leg Timing: Days Prehospital treatment: None Severity: Moderate Able to Move Extremity: Yes Bear Weight: Fully Pain: Moderate Mechanism: Blunt Trauma Circumstances: Accident Onset of Symptoms: After Trauma Symptoms: Swelling, Pain, Erythema DVT Risk Factors: NONE Last Tetanus: > 5 Years, Unknown Past Medical History PAST MEDICAL HISTORY: CKF, HTN, [place] Surgical History: Denies all surgeries Family History Family History: Reviewed,noncontributory to illness Social History Smoker: Non-Smoker Alcohol: Denies ETOH Use Drugs: Methamphetamine Lives In: Home Constitutional: denies: chills, diaphoresis, fatigue, fever, malaise, sweats, weakness, others EENTM: denies: blurred vision, double vision, ear bleeding, ear discharge, ear drainage, ear pain, ear ringing, eye pain, eye redness, hearing loss, mouth pain, mouth swelling, nasal discharge, nose bleeding, nose congestion, nose pain, photophobia, tearing, throat pain, throat swelling, voice changes, others Respiratory: denies: cough, hemoptysis, orthopnea, SOB at rest, shortness of breath, SOB with excertion, stridor, wheezing, others Cardiovascular: denies: chest pain, dizzy spells, diaphoresis, Dyspnea on exertion, edema, irregular heart beat, left arm pain, lightheadedness, palpitations, PND, syncope, others Gastrointestinal: denies: abdomen distended, abdominal pain, blood streaked bowels, constipated, diarrhea, dysphagia, difficulty swallowing, hematemesis, melena, nausea, poor appetite, poor fluid intake, rectal bleeding, rectal pain, vomiting, others Genitourinary: denies: burning, dysuria, flank pain, frequency, hematuria, incontinence, penile discharge, penile sore, pain, testicle pain, testicle swelling, urgency, others Neurological: denies: dizziness, fainting, headache, left sided numbness, left sided weakness, numbness, paresthesia, pre-existing deficit, right sided numbness, right sided weakness, seizure, speech problems, tingling, tremors, weakness, others Musculoskeletal: denies: back pain, gout, joint pain, joint swelling, muscle pain, muscle stiffness, neck pain, others Integumetry: reports: wounds (Rt leg wound with swelling and redness to right leg); denies: bruises, change in color, change in hair/nails, dryness, laceration, lesions, lumps, rash, others Allergic/Immunocompromised: denies: Difficulty Healing, Frequent Infections, Hives, Itching, others Hematologic/Lymphatic: denies: anemia, blood clots, easy bleeding, easy bruising, swollen glands, others Endocrine: denies: excessive hunger, excessive sweating, excessive thirst, excessive urination, flushing, intolerance to cold, intolerance to heat, unexplained weight gain, unexplained weight loss, others Psychiatric: denies: anxiety, bipolar disorder, depression, hopeless, panic disorder, schizophrenia, sleepless, suicidal, others All Other Systems: Reviewed and Negative Physical Exam General Appearance: Moderate Distress (Moderate distress due to right leg pain and swelling), Normal HEENT: Normal ENT Inspection, Pharynx Normal, TMs Normal Neck: Full Range of Motion, Non-Tender, Normal, Normal Inspection Respiratory: Chest Non-Tender, Lungs Clear, No Accessory Muscle Use, No Respiratory Distress, Normal Breath Sounds Cardiovascular: No Edema, No JVD, No Murmur, No Gallop, Normal Peripheral Pulses, Regular Rate/Rhythm Breast Exam: Deferred Gastrointestinal: No Organomegaly, Non Tender, No Pulsatile Mass, Normal Bowel Sounds, Soft Genitalia: Deferred Pelvic: Deferred Rectal: Deferred Extremities: Other (Patient displays a weeping wound to the inferior tibial tuberosity of the right [place]. Localized erythema and edema. Leg appears enlarged throughout. Distal neurovascularly intact. Patient can bear weight.) Neurologic: Alert, No Motor Deficits, Normal Affect, Normal Mood, No Sensory Deficits Cerebellar Function: NOT DONE Reflexes: NOT DONE Skin: Dry, Normal Color, Warm Lymphatic: No Adenopathy Was a procedure done? Was a procedure done?: No Differential Diagnosis EXT Differential Diagnosis: Cellulitis, Other (DVT, skin infection) X-Ray, Labs, Meds, VS Vital Signs Date Time Temp Pulse Resp B/P (MAP) Pulse Ox O2 Delivery O2 Flow Rate FiO2 02/05/25 17:28 97.0 89 16 141/92 99 97.0 Lab Test 02/05/25 19:19 Range/Units White Blood Count 7.6 4.4-10.8 10^3/uL Red Blood Count 4.41 L 4.5-5.90 10^6/uL Hemoglobin 13.6 13.5-17.5 g/dL Hematocrit 40.7 L 41.0-53.0 % Mean Corpuscular Volume 92.2 80.0-100.0 fL Mean Corpuscular Hemoglobin 31.0 28.0-32.0 pg Mean Corpuscular Hemoglobin Concent 33.6 32.0-36.0 g/dL Red Cell Distribution Width 14.4 H 11.8-14.3 % Platelet Count 327 140-450 10^3/uL Mean Platelet Volume 7.2 6.9-10.8 fL Neutrophils (%) (Auto) 65.2 37.0-80.0 % Lymphocytes (%) (Auto) 16.6 10.0-50.0 % Monocytes (%) (Auto) 10.5 0.0-12.0 % Eosinophils (%) (Auto) 7.0 0.0-7.0 % Basophils (%) (Auto) 0.7 0.0-2.0 % Neutrophils # (Auto) 5.0 1.6-8.6 10 ^3/uL Lymphocytes # (Auto) 1.3 0.4-5.4 10 ^3/uL Monocytes # (Auto) 0.8 0-1.3 10 ^3/uL Eosinophils # (Auto) 0.5 0-0.8 10 ^3/uL Basophils # (Auto) 0.1 0-0.2 10 ^3/uL Nucleated Red Blood Cells 0.1 % Sodium Level 137 136-145 mmol/L Potassium Level 3.9 3.5-5.1 mmol/L Chloride Level 103 98-107 mmol/L Carbon Dioxide Level 24 20-31 mmol/L Anion Gap 10 5-15 Blood Urea Nitrogen 18 9-23 mg/dL Creatinine 1.65 H 0.700-1.30 mg/dL Glomerular Filtration Rate Calc 49 >90 mL/min BUN/Creatinine Ratio 10.9 10.0-20.0 Serum Glucose 82 74-106 mg/dL Calcium Level 9.7 8.7-10.4 mg/dL X-Ray, Labs, Meds, VS Comment All studies performed the ED were evaluated by me personally. Serum studies were unremarkable for any systemic concerns or signs of bacteremia. Ultrasound of the right lower extremity ruled out any DVT formation. Patient will be sent home with oral antibiotics and pain medication. Advised follow up with the primary care provider in approximately 5-7 days. Time of 1ST Reevaluation: 20:04 Reevaluation 1ST: Improved Consultation: PCP Patient Education/Counseling: Diagnosis, Treatment Family Education/Counseling: Diagnosis, Treatment, No Family Present Sepsis Recent Procedure: No On Antibiotic Therapy: No Respiratory Rate >20: No Heart Rate >90: No Temp<36 C (96.8 F) or >38.3 C: No SBP <90 or MAP <65 mmHG: No New Acute Mental Status Change: No Is the patient on CPAP, BIPAP,: No IV fluid given: No Departure 1 Departure Time of Disposition: 20:05 Impression: Primary Impression: Contusion Additional Impression: Cellulitis Disposition: 01 HOME / SELF CARE / HOMELESS Condition: Stable Additional Instructions: Advise utilizing antibiotics as directed until completion as well as pain medication. Warm compresses has been advised. e-Prescriptions Ibuprofen Micronized (Ibuprofen) 800 Mg Tab 800 MG PO Q8HP PRN, #20 TAB Prov: FRIDA YOUNG PAC 02/05/25 Acetaminophen (Acetaminophen) 500 Mg Tab 500 MG PO Q4HP PRN, #30 TAB Prov: FRIDA YOUNG PAC 02/05/25 Cephalexin (KEFLEX CAPSULE) 250 Mg Cp 1 CAP PO QID for 7 Days, #28 CAP Prov: FRIDA YOUNG PAC 02/05/25 Discharged With: Self, Friend Critical Care Note Critical Care Time?: No Stability Stability form required: No Heart Score Heart Score: Heart Score Response (Comments) Value History N/A 0 EKG N/A 0 Age N/A 0 Risk Factors N/A 0 Troponin N/A 0 Total 0 I personally scribed for FRIDA YOUNG PAC ([email or web address]) on 02/05/25 at 19:11. Electronically submitted by Curtis Jeffries ([email or web address]). FRIDA YOUNG PAC Feb 05, 2025 19:11
[2025-02-05 19:34] LABS: Hematocrit 40.7 % (41.0-53.0); Hemoglobin 13.6 g/dL (13.5-17.5); Mean Corpuscular Hemoglobin 31.0 pg (28.0-32.0); Mean Corpuscular Volume 92.2 fL (80.0-100.0); Nucleated Red Blood Cells % 0.1 %
[2025-02-05 19:46] LABS: Chloride 103 mmol/L (98-107); Potassium 3.9 mmol/L (3.5-5.1); Sodium 137 mmol/L (136-145)
[2025-02-05 19:47] LABS: Anion Gap 10 (5-15); Calcium 9.7 mg/dL (8.7-10.4); Carbon Dioxide 24 mmol/L (20-31)
[2025-02-05 19:52] LABS: BUN/Creatinine Ratio 10.9 (10.0-20.0); Blood Urea Nitrogen 18 mg/dL (9-23); Glucose 82 mg/dL (74-106)
--- NOTE | 2025-02-05 19:59 | DVH ---
CLINICAL HISTORY: DVT rule out TECHNIQUE: Color and duplex doppler imagine of the right lower extremity veins was performed. Vessel compression if possible was also performed. COMPARISON: None FINDINGS: Right common femoral vein: Normal compressibility and flow. Right superficial femoral vein: Normal compressibility and flow. Right popliteal vein: Normal compressibility and flow. Proximal calf veins are normally compressible. IMPRESSION: NO SONOGRAPHIC EVIDENCE FOR DEEP VENOUS THROMBOSIS IN THE RIGHT LOWER EXTREMITY VEINS.
[2025-02-05] MEDS ORDERED: CEPH250C PO (20:06)
[2025-02-05] MEDS ORDERED: ACET500T58 PO (20:06)
[2025-02-05] MEDS ORDERED: IBUP-1455 PO (20:06)
[2025-02-05] MEDS: KETOROLAC TROMETH 60MG/2ML VIAL IM ONE (20:45)
[2025-02-05] MEDS: TETANUS-DIPTH-ACEL PERTUSSIS 0.5ML SYR Tdap IM ONE (20:45)
[2025-02-05 21:04] VITALS: BP 150/86; PULSE 89; RESP 18; TEMP 98.1; O2SAT 97
== END 2025-02-05 20:45 | disposition home or self-care (01) ==
LOC: ER 17:26
DX: S80.11XA Contusion of right lower leg, initial encounter (principal); L03.115 Cellulitis of right lower limb; F19.90 Other psychoactive substance use, unspecified, uncomplicated; I12.9 Hypertensive chronic kidney disease with stage 1 through stage 4 chronic kidney disease, or unspecified chronic kidney disease; N18.9 Chronic kidney disease, unspecified; I25.2 Old myocardial infarction; Z23 Encounter for immunization; X58.XXXA Exposure to other specified factors, initial encounter; Y93.89 Activity, other specified; Y92.89 Other specified places as the place of occurrence of the external cause; Y99.8 Other external cause status
CPT/HCPCS: 36415; 80048; 85025; 90471; 90715; 93971; 96372; 99285; J1885